=== PATIENT | female | born 1970 | race Caucasian/White ===

== ENCOUNTER 2024-08-22 23:31 | Emergency (ER) | payer SELFPAY ==
[2024-08-23 00:28] LABS: BASOPHILS ABSOLUTE AUTO 0.05 K/uL (0.00-0.20); BASOPHILS PERCENT AUTO 1.2 % (0.0-1.0); EOSINOPHILS ABSOLUTE AUTO 0.02 K/uL (0.00-0.45); EOSINOPHILS PERCENT AUTO 0.5 % (0.0-6.0); HEMATOCRIT 38.5 % (37.0-47.0); HEMOGLOBIN 13.4 g/dL (12.0-16.0); IMMATURE GRAN ABSOLUTE AUTO 0.01 K/uL (0.00-0.05); IMMATURE GRAN PERCENT AUTO 0.2 % (0.0-0.4); LYMPHOCYTES ABSOLUTE AUTO 1.02 K/uL (1.00-4.80); LYMPHOCYTES PERCENT AUTO 24.3 % (24.0-44.0); MEAN CORPUSCULAR HEMOGLOBIN 33.5 pg (28.0-32.0); MEAN CORPUSCULAR HGB CONC 34.8 g/dL (32.0-36.0); MEAN CORPUSCULAR VOLUME 96.3 fL (83.0-99.0); MEAN PLATELET VOLUME 9.6 fL (9.4-12.3); MONOCYTES ABSOLUTE AUTO 0.41 K/uL (0.00-0.80); MONOCYTES PERCENT AUTO 9.8 % (0.0-8.0); NEUTROPHILS ABSOLUTE AUTO 2.68 K/uL (1.80-7.70); WHITE BLOOD CELL COUNT,WBC 4.19 K/uL (3.9-11.3)
[2024-08-23] MEDS ORDERED: PHENobarbital Sodium 130 MG/ML SDV IVPUSH PRN (00:32)
[2024-08-23] MEDS: Sodium Chloride 0.9% 1,000 ML IV ONE (00:34)
[2024-08-23] MEDS: Acetaminophen 1,000 MG in Premix Bag 1 BAG IV ONE (00:34)
[2024-08-23] MEDS: Ondansetron 4 MG/2 ML SDV IVPUSH ONE (00:36)
[2024-08-23 00:40] LABS: INR 1.05 (0.86-1.11)
[2024-08-23] MEDS: PHENobarbitaL sodium 260 MG in Sodium Chloride 0.9% 100 ML IV ONE (00:42)
[2024-08-23] MEDS: SODIUM CHLORIDE 0.9% IV ONE (00:46)
[2024-08-23] MEDS: PHENOBARBITAL SODIUM IV ONE (00:46)
[2024-08-23 00:48] LABS: A/G RATIO 1.3 (0.9-1.6); ALANINE AMINOTRANSFERASE,ALT 64 IU/L (14-63); ALBUMIN 4.2 g/dL (3.4-5.0); ALKALINE PHOSPHATASE 111 U/L (46-116); ASPARTATE AMNIOTRANSFERASE,AST 134 IU/L (15-37); BILIRUBIN TOTAL 1.6 mg/dL (0.2-1.0); BLOOD UREA NITROGEN,BUN 17 mg/dL (7.0-18.0); CALCIUM 9.9 mg/dL (8.5-10.1); CARBON DIOXIDE,CO2 25.7 mmol/L (21.0-32.0); CHLORIDE,CL 98 mmol/L (98-107); CREATININE 0.7 mg/dL (0.6-1.0); GLUCOSE RANDOM 108 mg/dL (74-106); POTASSIUM,K 3.7 mmol/L (3.5-5.1); PROTEIN TOTAL,TP 7.4 g/dL (6.4-8.2); SODIUM,NA 139 mmol/L (136-145)
[2024-08-23 00:52] LABS: ESTIMATED GFR 103 mL/min (>60)
[2024-08-23 01:04] LABS: PLATELET COUNT,PLT 80
[2024-08-23] MEDS: chlordiazePOXIDE 25 MG Cap PO ONE (02:35)
== END 2024-08-23 02:42 | disposition home or self-care (01) ==
LOC: MW.ED 23:31
DX: F10.139 Alcohol abuse with withdrawal, unspecified (principal); D69.6 Thrombocytopenia, unspecified; I10 Essential (primary) hypertension; Z79.899 Other long term (current) drug therapy; Z88.5 Allergy status to narcotic agent
CPT/HCPCS: 36415; 80053; 85025; 85610; 93005; 96365; 96368; 96375; 99285; A9270; J0131; J2405; J2560; J3490; J7030

== ENCOUNTER 2025-01-09 21:21 | Emergency (ER) | payer SELFPAY | END 2025-01-09 23:17 | disposition left against medical advice (07) | LOC: MW.ED 21:21 | DX: Z53.21 Procedure and treatment not carried out due to patient leaving prior to being seen by health care provider (principal) | CPT/HCPCS: 36415; 80307 ==

== ENCOUNTER 2025-01-27 22:39 | Emergency (ER) | payer OTHER ==
[2025-01-27] MEDS: Acetaminophen 500 MG Tab PO ONE (22:57)
== END 2025-01-28 00:32 | disposition home or self-care (01) ==
LOC: MW.ED 22:39
DX: S00.83XA Contusion of other part of head, initial encounter (principal); F10.120 Alcohol abuse with intoxication, uncomplicated; I10 Essential (primary) hypertension; E78.00 Pure hypercholesterolemia, unspecified; Z88.5 Allergy status to narcotic agent; Z79.899 Other long term (current) drug therapy; W50.0XXA Accidental hit or strike by another person, initial encounter; Y93.89 Activity, other specified; Y90.9 Presence of alcohol in blood, level not specified
CPT/HCPCS: 70486; 70486-26; 99283; 99284; A9270-GY